=== PATIENT | female | born 1980 | race Caucasian/White ===

== ENCOUNTER 2020-01-13 10:30 | Outpatient (CLI) | payer MEDICAID, SELFPAY ==
--- NOTE | 2020-01-13 10:30 | MM_ITS ---
WS: [id number] RIGHT DIGITAL MAMMOGRAPHY WITH CAD CLINICAL INFORMATION: lump right breast at 10 O'Clock HISTORY: Right breast lump COMPARISON: None. TECHNIQUE: 4 views of the right breast were obtained. Left breast comparison obtained FINDINGS: The right breast is composed of heterogeneous fibroglandular density tissue, which can limit the dete ction of small underlying mass lesions. Palpable marker upper outer right breast with underlying dens e breast tissue. More focal asymmetric density measuring 1.7 CM deep to the palpable marker. Ultrasou nd is pending. No suspicious mammographic abnormalities comparison left breast ULTRASOUND BREAST RIGHT TECHNIQUE: Ultrasound right breast focused area of concern. CLINICAL INFORMATION: lump right breast at 10 O'Clock COMPARISON: None. FINDINGS: Ultrasound right breast 2:00 position. In the area of palpable concern is a hypoechoic shadowing nicole d lesion measuring 1.4 x 1.3 x 1.3 cm which has a suspicious appearance. This is slightly taller than wide. Recommend further evaluation ultrasound-guided biopsy MM/[place] [id number] IMPRESSION: BI-RADS: 5-Highly Suggestive of Malignancy FOLLOW UP: US Guided Biopsy Recommended
--- NOTE | 2020-01-13 11:00 | US_ITS ---
WS: [id number] RIGHT DIGITAL MAMMOGRAPHY WITH CAD CLINICAL INFORMATION: lump right breast at 10 O'Clock HISTORY: Right breast lump COMPARISON: None. TECHNIQUE: 4 views of the right breast were obtained. Left breast comparison obtained FINDINGS: The right breast is composed of heterogeneous fibroglandular density tissue, which can limit the dete ction of small underlying mass lesions. Palpable marker upper outer right breast with underlying dens e breast tissue. More focal asymmetric density measuring 1.7 CM deep to the palpable marker. Ultrasou nd is pending. No suspicious mammographic abnormalities comparison left breast ULTRASOUND BREAST RIGHT TECHNIQUE: Ultrasound right breast focused area of concern. CLINICAL INFORMATION: lump right breast at 10 O'Clock COMPARISON: None. FINDINGS: Ultrasound right breast 2:00 position. In the area of palpable concern is a hypoechoic shadowing nicole d lesion measuring 1.4 x 1.3 x 1.3 cm which has a suspicious appearance. This is slightly taller than wide. Recommend further evaluation ultrasound-guided biopsy US/[place] [id number] IMPRESSION: BI-RADS: 5-Highly Suggestive of Malignancy FOLLOW UP: US Guided Biopsy Recommended
== END 2020-01-13 10:31 | disposition home or self-care (01) ==
LOC: RADSHAW 10:34
PROVIDERS: Family Provider Family Medicine; PCP Nurse Practitioner; Visit Provider Nurse Practitioner
DX: N63.11 Unspecified lump in the right breast, upper outer quadrant (principal)
CPT/HCPCS: 76641; 77065

== ENCOUNTER 2020-02-15 11:50 | Outpatient (CLI) | payer MEDICAID, SELFPAY ==
--- NOTE | 2020-02-15 11:56 | US_ITS ---
WS: [id number] ULTRASOUND-GUIDED RIGHT BREAST BIOPSY CLINICAL INFORMATION: LUMP COMPARISON: None. FINDINGS: The procedure including risks, benefits, and complications were discussed with the patient who agreed to proceed. Using sterile technique patient was prepped and draped in the usual sterile fashion. Aft er 1% lidocaine utilizing real-time ultrasound guidance 5 14-gauge cores were obtained of the right b reast lesion at the 10 o'clock position. Subsequently a titanium clip was placed adjacent to the biop sy cavity peripherally. Clip cannot be advanced further due to dense breast tissue and dense breast l esion. PATHOLOGY DEMONSTRATES: Right breast mass at 10:00, needle core biopsies: Invasive ductal carcinoma breast with moderate nucl ear grade 2/6 cores involved with the longest positive core 6 mm US/[place] [id number] IMPRESSION: 1. Uncomplicated ultrasound-guided right breast biopsy. 2. The pathology demonstrates invasive ductal carcinoma. See details above. 3. Breast cancer prognostic profile pending. BI-RADS: 6-Known Biopsy-Proven Malignancy FOLLOW UP: Surgical Biopsy Recommended
== END 2020-02-15 11:51 | disposition home or self-care (01) ==
LOC: RAD 11:54
PROVIDERS: Family Provider Family Medicine; PCP Nurse Practitioner; Visit Provider Nurse Practitioner
DX: N63.11 Unspecified lump in the right breast, upper outer quadrant (principal); C50.411 Malignant neoplasm of upper-outer quadrant of right female breast
CPT/HCPCS: 19083; 88305

== ENCOUNTER 2020-02-17 07:54 | Outpatient (CLI) | payer MEDICAID, SELFPAY ==
--- NOTE | 2020-02-17 09:48 | ONC CON_ITS ---
Dr. Canada New Patient Note Patient: Alma Phoenix Unit #: [id number]: [id number] Dicatated By: Guillaume Canada M.D.Date of Visit: Feb 17, 2020 Onc MED New Patient/Consult Referring Physician: Dr. Rebecca Felipe M.D. Chief Complaint: Breast cancer. History of Present Illness: This is a 39 year-old woman with newly diagnosed grade 2 invasive ductal carcinoma of the right breast. She has been in good general health. She presented with a palpable lump in the left breast. She had first become aware of it and November. Diagnostic mammogram and ultrasound on 01/13/2020 was BI-RADS 5, highly suggestive of malignancy. Mammogram showed heterogeneous fibroglandular density tissue with more focal asymmetric density measuring 1.7 cm deep to the palpable marker. Ultrasound showed a hypoechoic solid lesion measuring 1.4 x 1.3 x 1.3 cm, noted to have a suspicious appearance. She then underwent ultrasound directed core needle biopsy of the right breast mass on 02/15/2020. Pathology showed grade 2 invasive ductal carcinoma. The breast prognostic profile is pending. She has been feeling pretty good generally. She does have some fatigue, and she says that she can sleep all the time. However, she is working 10 hours a day, 4 days a week. Her ECOG score is 0. She has good appetite. She has no fever or night sweats. She reports that she has hot flashes all the time. She is still having regular menstrual periods. She had 5 years of injectable contraceptive between her pregnancies. Her first was at age 14. There has been no history of breast or ovarian cancer in her family. Her other symptomatic complaints are limited to frequent heartburn and occasional low back pain. Past Medical History: She has had no prior ongoing medical illnesses. Past Surgical History: She underwent ultrasound directed core needle biopsy of the right breast on 02/15/2020. Her other surgical/procedural history includes cholecystectomy and tubal ligation. Medications: Acetaminophen 2 Tablet (of 325 mg) Oral PRN Allergies: No Known Allergies. Social History: Ms. Phoenix is . She works at a [employer]. She has a history of smoking 1/2 pack of cigarettes daily since age 14. She does not drink alcohol. Family History: She has no knowledge about her father other than she thinks he is . Mother is still living and in good health. Two siblings are in good health. Review Of Symptoms: Constitutional - She feels tired and she says she could sleep all the time, but she does work 10 hours a day 4 days a week. Appetite is good. She has gained weight. No fever or night sweats. She has hot flashes all the time. ECOG score is 0, Eyes - No change in vision, ENMT - No hearing loss or tinnitus. No sinus congestion/drainage. No mouth sores. No sore throat or difficulty swallowing, Hematologic/Lymphatic - No abnormal bruising or bleeding, Respiratory - No shortness of breath. No cough. No pleuritic pain or hemoptysis, Cardiovascular - No angina pain. No palpitations, Gastrointestinal - No nausea or vomiting. She has heartburn all the time. She manages it with Rolaids. No diarrhea or constipation. No blood in the stool or black stools, Genitourinary (F) - No dysuria or hematuria. No urinary frequency. No urgency or incontinence. She is having regular menstrual periods, Musculoskeletal - She has some low back pain at times. She has no other joint or bone pain, Integumentary - No skin rash or other skin problems, Neurologic - No headache or dizziness. No numbness/paresthesias or other focal neurologic symptoms, Psychiatric - No anxiety or depression. No insomnia. Vital Signs: Performed on Feb 17, 2020 08:15: 0, 24.65, 1.70 sq.m, 64.00 in, 100 %, 89 /min, 18 /min, 113/76 mm(hg), 97.3 F (LOW), and 143.6 lbs (HIGH). Physical Examination: Constitutional - She appears to be in good general health, Eyes - Sclerae nonicteric. Conjunctivae clear, ENMT - No lesions noted in the oral cavity, Neck - No mass or thyromegaly, Hematologic/Lymphatic - No cervical or clavicular adenopathy, Respiratory - Lungs are clear with good air movement bilaterally, Cardiovascular - Heart rhythm is regular. There is no murmur, gallop, or rub noted, Breasts - The right breast shows a firm nodule in the upper outer quadrant measuring approximately 2 cm. There is some slight nodularity in the upper outer quadrant of the left breast. There is no suspicious mass in the left breast. There is no axillary adenopathy noted, Abdomen - Soft and non-tender. Liver and spleen are not enlarged. There is no abdominal mass or ascites noted and there is no inguinal adenopathy, Back/Spine - No spine or CVA tenderness noted, Extremities - No edema. Posterior tibial pulses are palpable bilaterally, Integumentary - No rashes. No suspicious skin lesions noted, Neurologic - No focal neurologic deficits noted. Impression: 1. This is a premenopausal patient with newly diagnosed grade 2 invasive ductal carcinoma of the right breast. Staging is incomplete, but it does appear to be a T1c primary tumor by ultrasound. The breast prognostic profile is still pending. 2. She underwent ultrasound directed core needle biopsy of the right breast on 02/15/2020. Plan: The pathology results were reviewed with the patient and we discussed the clinical implications. She has invasive breast cancer, but at this point the results of the breast prognostic profile are still pending and the staging is incomplete. Assuming this is HER-2/juwan negative disease, the standard procedure would be to proceed with lumpectomy and axillary sentinel lymph node biopsy, as she would appear to be an appropriate candidate for breast conservation management. She is aware that she would then need to undergo radiation to complete her primary treatment. Recommendations for systemic adjuvant therapy will depend on the final staging, ER/MD status, and on results of Oncotype DX, as indicated. If her disease is HER-2/juwan positive, she will require additional imaging of the axilla to determine whether or not she would be a candidate for neoadjuvant chemotherapy. At this point she does appear to be willing to proceed with treatment as recommended. I will go ahead and arrange surgical consultation with Dr Espinoza in anticipation of lumpectomy/sentinel axillary lymph node biopsy. Signed By: Guillaume Canada M.D. <<Signature on File>>
== END 2020-02-17 07:55 | disposition home or self-care (01) ==
LOC: ONCMED 07:55
PROVIDERS: Family Provider Family Medicine; PCP Nurse Practitioner; Visit Provider Internal Medicine Medical Oncology
DX: C50.411 Malignant neoplasm of upper-outer quadrant of right female breast (principal); F17.210 Nicotine dependence, cigarettes, uncomplicated
CPT/HCPCS: 99205

== ENCOUNTER 2020-02-24 08:22 | Day surgery (SDC) | payer MEDICAID, SELFPAY ==
[2020-02-23 11:46] VITALS: BMI 24.9
[2020-02-24] VITALS (12 sets, daily range): BP systolic 109–131; BP diastolic 63–78; PULSE 68–105; RESP 12–28; TEMP 36.5–36.8; O2SAT 94–99
--- NOTE | 2020-02-24 08:49 | US_ITS ---
WS: [id number] ULTRASOUND-GUIDED RIGHT BREAST NEEDLE LOCALIZATION HISTORY: RIGHT BREAST MASS Procedure, risks and complications were explained to the patient. Consent is obtained. Skin is cleansed with ChloraPrep and anesthetized with 1% buffered lidocaine. Needle and guidewire pl aced to the area of concern with no complications. Ultrasound guidance performed during the needle lo calization. Guidewire is left within the lesion. Guidewire secured and no complications encountered. Patient is being transported to the OR suite. Specimen radiograph is also reviewed. Mass is present within the specimen. 1. Uncomplicated RIGHT breast needle localization of a mass at 10:00. 2. Mass is contained within the specimen. PATHOLOGY RESULTS: Invasive ductal carcinoma, DCIS and intraductal papilloma. Tumor extends to 1 mm o f several margins. Please refer to the pathology report. RECOMMENDATIONS: Follow-up with Dr. Espinoza. US/US breast surgical specimen IMPRESSION:
--- NOTE | 2020-02-24 08:49 | US_ITS ---
WS: [id number] ULTRASOUND-GUIDED RIGHT BREAST NEEDLE LOCALIZATION HISTORY: RIGHT BREAST MASS Procedure, risks and complications were explained to the patient. Consent is obtained. Skin is cleansed with ChloraPrep and anesthetized with 1% buffered lidocaine. Needle and guidewire pl aced to the area of concern with no complications. Ultrasound guidance performed during the needle lo calization. Guidewire is left within the lesion. Guidewire secured and no complications encountered. Patient is being transported to the OR suite. Specimen radiograph is also reviewed. Mass is present within the specimen. 1. Uncomplicated RIGHT breast needle localization of a mass at 10:00. 2. Mass is contained within the specimen. PATHOLOGY RESULTS: Invasive ductal carcinoma, DCIS and intraductal papilloma. Tumor extends to 1 mm o f several margins. Please refer to the pathology report. RECOMMENDATIONS: Follow-up with Dr. Espinoza. US/[place] [id number] IMPRESSION:
--- NOTE | 2020-02-24 09:39 | NM_ITS ---
WS: [id number] NUCLEAR MEDICINE SENTINEL LYMPH NODE IMAGING HISTORY: SENTINEL NODE BIOPSY, RIGHT breast. COMPARISON: None available. TECHNIQUE: The patient was injected with 1.03 mCi of Technetium 99 ultra filtered sulfur colloid. Inj ection is intradermal in a periareolar location. Four aliquots are used. Uncomplicated injection. NM/NM sentinel node inject [id number] IMPRESSION: Uncomplicated RIGHT sentinel node injection.
[2020-02-24] MEDS: sodium chloride 0.9% 1,000 ML 30 ML IV (10:15)
--- NOTE | 2020-02-24 10:19 | ANES.PREANE2 ---
Pre-Anesthetic Assessment Pre-Anesthetic Assessment: Height/Weight: Height 1.63 m Weight 65.771 kg Temp Pulse Resp BP Pulse Ox 97.7 F 84 18 109/74 99 02/24/20 08:39 02/24/20 08:39 02/24/20 08:39 02/24/20 08:39 02/24/20 08:39 Preop Diagnosis: Right breast cancer Proposed Procedure: Operation Date: 02/24/20 13:30 Proposed Procedures p Sentinal Lymph Node Biopsy [id number] 20054 C50.911(Right) - Miles Espinoza MD s Breast Biopsy Needle Localization(Right) - Miles Espinoza MD s Breast Lumpectomy(Right) - Miles Espinoza MD Familial anesthetic complications: None Was Beta Rony taken within 24 hours: N/A Last intake: Intake Last Liquid Date 02/23/20 Last Liquid Time 21:30 Last Solid Date 02/23/20 Last Solid Time 20:00 Social: Social History: Tobacco and No alcohol Packs per day: 0.5 ppd Exam: Pre-Anes Outpt Exam: alert, oriented x 3, clear to auscultation bilaterally and regular rate & rhythm Airway: Cervical ROM: WNL MP: 2 Dentition: Chipped Pulmonary: Pulmonary: None reported CV/HEM: CV/HEM: None reported : : None reported Hepatic: Hepatic: None reported GI: GI: None reported Metabolic: Metabolic: None reported Musc/skel: Musc/skel: None reported Neuropsych: Neuropsych: None reported Anesthetic Plan: ASA status: 2 Anesthesia: General PFSH Anesthesia PFSH: Social History Smoking and tobacco status: current every day smoker cigarettes Alcohol intake: never History of recent travel: No Female Reproductive History: Date of last menstrual period: 12/12/19 Data Anesthesia Cardiac Studies: No Data to Display
--- NOTE | 2020-02-24 10:49 | W.PM.OPSUD ---
Surgery/Procedure H&P Update DATE OF PROCEDURE: February 24, 2020 DATE H&P PERFORMED: 02/21/20 H&P UPDATE INFORMATION: I have reviewed H&P completed within last 30 days, I have examined patient prior to procedure and No changes to prior documentation PREOP DIAGNOSIS: Right breast cancer PLANNED PROCEDURE: Operation Date: 02/24/20 13:30 Proposed Procedures p Sentinal Lymph Node Biopsy [id number] C50.911(Right) - Miles Espinoza MD s Breast Biopsy Needle Localization(Right) - Miles Espinoza MD s Breast Lumpectomy(Right) - Miles Espinoza MD
[2020-02-24] MEDS: isosulfan blue 10 mg/mL SDV 5mL SUBCUT (13:58)
[2020-02-24] MEDS: lidocaine 1% INJ 20 mL SUBCUT (13:59)
--- NOTE | 2020-02-24 15:14 | SUR.PHASEI ---
1511 PATIENT TO PACU AT THIS TIME. RR EVEN AND UNLABORED. SPO2 96% ON RA. SURGICAL BRA IN PLACE WITH DRESSING TO RIGHT BREAST, CDI. PATIENT RESTING COMFORTABLE ON GURNEY.
--- NOTE | 2020-02-24 15:16 | PM.OP ---
Operative Report Date of procedure: February 24, 2020 Pre-op Diagnosis: Infiltrating ductal carcinoma right breast at 10:00 confirmed on biopsy Procedure Done: Wire localization right partial mastectomy [place] lymph node mapping with 1% Lymphazurin [place] lymph node biopsy Specimens removed/disposition: Right breast mass 10 o'clock position, short stitch superior, long stitch lateral, posterior margin inked Right axillary sentinel lymph node biopsy Shave margin, superior, inferior, medial, posterior outer edge was inked Surgeon: Miles Espinoza Anesthesia: General Estimated blood loss (mL): 50 Condition: stable Disposition: PACU Procedure: The wire localization of the mammographic abnormality was performed by the radiologist under ultrasound guidance and the patient was transferred to operating room and placed under MAC after IV antibiotic had been administered. The right breast was prepped and draped in a manner . A curvilinear incision was made over the areolar margin at 10'o clock inferior to the marking over the mammographic abnormality, subcutaneous tissue was divided and skin flaps were raised medially and laterally. The localization wire was grasped through the incision and using electrocautery the wire along with the breast tissue containing mammographic abnormality was dissected free from the surrounding tissue. Using 2-0 silk suture, short stitch was placed superiorly and a long stitch was placed laterally and posterior edge was inked.there were couple of bleeders which were controlled with cautery. Shave margins were then obtained from the superior, inferior, medial, posterior margins of the lumpectomy cavity and the outer edge was inked. The wound was irrigated with saline, hemostasis ensured with electrocautery and subcutaneous tissues approximated using 3-0 running Vicryl suture and skin was closed using running subcuticular 4-0 Monocryl sutures and Dermabond. A technetium sulfur colloid had been injected previously by the radiologist in the periareolar area. 3 mL of 1% Lymphazurin was injected in the subareolar location. The breast was massaged for 5 minutes and a 2 cm incision was made in the left axilla at the edge of the hairline. The subcutaneous tissue and clavipectoral fascia was divided with electrocautery and gentle dissection revealed lymphatics with stained lymph nodes. Using electrocautery the lymph nodes were dissected free. Examination of the axilla did not reveal any other radioactive lymph nodes. The clavipectoral and subcutaneous tissue was approximated using running 3-0 Vicryl suture and skin was closed using running subcuticular 4-0 Monocryl suture and Dermabond. Fluffs were used for pressure dressing. Patient was transferred to recovery room in stable condition The lumpectomy specimens were sent to mammography to obtain radiological confirmation of complete excision of the mammographic abnormality.
[2020-02-24] MEDS: fentaNYL 50 mcg/mL INJ 2mL IVP (15:31)
--- NOTE | 2020-02-24 15:50 | SUR.PHASEI ---
1541 PATIENT TO OPS AT THIS TIME. NO DISTRESS. TOLERATING ICE CHIPS. DRESSING CDI TO RIGHT BREAST WITH SURGICAL BRA IN PLACE.
[2020-02-24] MEDS: HYDROcodone-acetaminophen 5-325 mg Tablet 1 TAB PO (16:21)
== END 2020-02-24 16:46 | disposition home or self-care (01) ==
PROVIDERS: Family Provider Family Medicine; PCP Nurse Practitioner; Visit Provider Surgery
PROC: (CPT 19301; principal; 2020-02-24 13:10)
PROC: (CPT 19301; 2020-02-24 13:10)
PROC: (CPT 19301; 2020-02-24 13:10)
DX: C50.911 Malignant neoplasm of unspecified site of right female breast (principal); J45.909 Unspecified asthma, uncomplicated; M19.90 Unspecified osteoarthritis, unspecified site; K21.9 Gastro-esophageal reflux disease without esophagitis; F17.210 Nicotine dependence, cigarettes, uncomplicated
CPT/HCPCS: 19301; 38500; 12345; 19285; 38792; 88305; A9541; J0330; J0690; J1100; J1885; J2001; J2405; J2704; J2710; J3010; J3490; J7030; J7040; Q9968

== ENCOUNTER 2020-03-12 08:39 | Day surgery (SDC) | payer MEDICAID, SELFPAY ==
[2020-03-09 15:05] VITALS: BMI 25.0
[2020-03-12 08:47] VITALS: BP 103/71; PULSE 88; RESP 18; TEMP 36.3; O2SAT 98
[2020-03-12] MEDS: sodium chloride 0.9% 1,000 ML 30 ML IV (09:10)
--- NOTE | 2020-03-12 09:15 | P.ANESASSM_ITS ---
Pre-Anesthetic Assessment Pre-Anesthetic Assessment: Height/Weight: Height 1.63 m Weight 66.224 kg Temp Pulse Resp BP Pulse Ox 97.4 F L 88 18 103/71 98 03/12/20 08:47 03/12/20 08:47 03/12/20 08:47 03/12/20 08:47 03/12/20 08:47 Preop Diagnosis: Right breast cancer Proposed Procedure: Operation Date: 03/12/20 09:30 Proposed Procedures p Reexcission of right breast 215596 C50.911(Right) - Miles Espinoza MD Familial anesthetic complications: None Was Beta Rony taken within 24 augustin rs: N/A Last intake: Intake Last Liquid Date 03/11/20 Last Liquid Time 23:00 Last Solid Date 03/11/20 Last Solid Time 23:00 Social: Social History: Tobacco and No alcohol Packs per day: 0.5 ppd Exam: Pre-Anes Outpt Exam: alert, oriented x 3, clear to auscultation bilaterally and regular rate & rhythm Airway: Cervical ROM: WNL MP: 1 Dentition: Chipped Pulmonary: Pulmonary: None reported CV/HEM: CV/HEM: None reported : : None reported Hepatic: Hepatic: None reported GI: GI: None reported Metabolic: Metabolic: None reported Musc/skel: Musc/skel: None reported Neuropsych: Neuropsych: None reported Anesthetic Plan: ASA status: 2 Anesthesia: MAC Risk of > 500 ml blood loss (7ml/kg in children): No Meds/Allergies Current Medications: Current Medications Generic Name Dose Route Start Last Admin Trade Name Freq PRN Reason Stop Dose Admin Sodium Chloride 1,000 mls @ 30 ml s/hr 03/12/20 08:45 03/12/20 09:10 Sodium Chloride 0.9% IV 03/13/20 08:44 30 mls/hr .Q24H RAYSHAWN Administration PFSH Anesthesia PFSH: Social History Smoking and tobacco status: current every day smoker cigarettes Alcohol intake: never History of recent travel: No Female Reproductive History: Date of last menstrual period: 12/12/19 Data Anesthesia Cardiac Studies: No Data to Display
--- NOTE | 2020-03-12 09:32 | W.PM.OPSUD ---
Surgery/Procedure H&P Update DATE OF PROCEDURE: March 12, 2020 DATE H&P PERFORMED: 03/09/20 H&P UPDATE INFORMATION: I have reviewed H&P completed within last 30 days, I have examined patient prior to procedure and No changes to prior documentation PREOP DIAGNOSIS: Right breast cancer PLANNED PROCEDURE: Operation Date: 03/12/20 09:30 Proposed Procedures p Reexcission of right breast [id number] C50.911(Right) - Miles Espinoza MD
[2020-03-12] MEDS: lidocaine 1% INJ 20 mL SUBCUT (10:11)
[2020-03-12 10:58] VITALS: BP 100/72; PULSE 77; RESP 18; TEMP 36.7; O2SAT 97
[2020-03-12] MEDS: HYDROcodone-acetaminophen 5-325 mg Tablet 1 TAB PO (11:00)
[2020-03-12 11:04] VITALS: BP 110/85; PULSE 78; RESP 18; O2SAT 96
--- NOTE | 2020-03-19 09:36 | PM.OP ---
Operative Report Date of procedure: March 12, 2020 Pre-op Diagnosis: Right breast cancer with DCIS with positive margins Post-op diagnosis: same Procedure Done: Excision of positive margins from the lumpectomy cavity right breast Specimens removed/disposition: Superior, inferior, medial, lateral, anterior, posterior margins Surgeon: Miles Espinoza Anesthesia: MAC Estimated blood loss (mL): 10 Condition: stable Disposition: PACU Procedure: The patient was taken to the operating room and placed under MAC after IV antibiotic had been administered. Using 15 blade the areaolar incision on the right breast was opened with drainage of seroma. The lumpectomy cavity was identified after subcutaneous sutures were divided. 1 cm shave margins were then obtained from the superior, inferior, anterior, medial, lateral and posterior margins of the lumpectomy cavity. The outer edge of the shave margins were inked. Small titanium clips were placed within the lumpectomy cavity for radiotherapy planning. The wound was irrigated saline, hemostasis ensured and subcutaneous tissues approximated using interrupted 3-0 Vicryl suture and skin was closed using running subcuticular 4-0 Monocryl suture and surgical glue. Pressure dressings were applied. The patient was transferred to recovery room in stable condition.
== END 2020-03-12 11:56 | disposition home or self-care (01) ==
PROVIDERS: Family Provider Family Medicine; PCP Nurse Practitioner; Visit Provider Surgery
PROC: (CPT 19301; principal; 2020-03-12 09:20)
DX: C50.911 Malignant neoplasm of unspecified site of right female breast (principal); J45.909 Unspecified asthma, uncomplicated; M19.90 Unspecified osteoarthritis, unspecified site; K21.9 Gastro-esophageal reflux disease without esophagitis; F17.210 Nicotine dependence, cigarettes, uncomplicated
CPT/HCPCS: 19301; 12345; 88305; J0690; J1885; J2001; J2250; J2405; J2704; J3010; J3490; J7030